=== PATIENT | female | born 1970 | race Hispanic/Latino ===

== ENCOUNTER 2016-09-15 12:58 | Emergency (ER) | payer OTHER ==
[~2016-09-15] VITALS: Ht 162.6 cm; Wt 130.4 kg
[2016-09-15 13:05] VITALS: BP 140/81; PULSE 100; RESP 17; O2SAT 98
[2016-09-15 13:13] VITALS: BP 140/81; PULSE 100; RESP 17; O2SAT 98
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
--- NOTE | 2016-09-15 14:49 | DRSVH ---
PROCEDURE: X-RAY LEFT WRIST COMPLETE, MINIMUM THREE VIEWS ([id number]) INDICATIONS: Left wrist injury. TECHNIQUE: 4 views of the wrist were acquired. COMPARISON: None. FINDINGS: Bones: No displaced fracture or dislocation is identified. Bone mineralization is within normal limi ts. No suspicious osseous lesions are identified. Scaphoid appears intact. Ulnar minus Rojas is p resent. Minimal irregularity at the tip of the ulnar styloid process probably is related to previous trauma. Soft tissues: No suspicious soft tissue calcifications. IMPRESSION: No acute fracture of the left wrist. Dictated by: Matthew Baxter M.D. on 09/15/2016 at 13:46 Approved by: Matthew Baxter M.D. on 09/15/2016 at 13:47
--- NOTE | 2016-09-15 16:28 | DRSVH ---
PROCEDURE: X-RAY RIGHT ANKLE, MINIMUM THREE VIEWS ([id number]) INDICATIONS: malleoli tenderness TECHNIQUE: 3 views of the ankle were acquired. COMPARISON: None. FINDINGS: Bones: Small irregular osseous density seen adjacent to the tip of the medial malleolus as well as mi ld cortical irregularity along the tip of the lateral malleolus. There is both medial and lateral so ft tissue swelling. Ankle mortise is symmetric. Soft tissues: No tibiotalar joint effusion. Achilles tendon appears normal. IMPRESSION: Osseous density adjacent to the medial and lateral malleolar tips which could be related to avulsion fractures given the soft tissue swelling which is present. If indicated repeat exam coul d be performed in 7-10 days. Dictated by: Óscar HAHN Interpreted: Tanya Petty MD on 09/15/2016 at 16:23 Transcribed by: TATI on 09/15/2016 at 16:27 Approved by: Tanya Petty M.D. on 09/16/2016 at 11:29
[2016-09-15 16:59] VITALS: BP 142/78; PULSE 91; RESP 17; O2SAT 98
== END 2016-09-15 17:02 | disposition home or self-care (01) ==
LOC: SED 12:58 → EDBD 12:58 → SED 17:02
DX: S82.61XA Displaced fracture of lateral malleolus of right fibula, initial encounter for closed fracture (principal); S60.212A Contusion of left wrist, initial encounter; V43.52XA Car driver injured in collision with other type car in traffic accident, initial encounter; Y92.410 Unspecified street and highway as the place of occurrence of the external cause; Y93.9 Activity, unspecified; Y99.8 Other external cause status
CPT/HCPCS: 73110; 73610; 96372; 99284; J1885